=== PATIENT | female | born 1950 | race Caucasian/White ===

== ENCOUNTER 2016-05-06 01:49 | Emergency (ER) | payer MEDICARE, MEDICAID ==
[~2016-05-06] VITALS: Ht 160 cm; Wt 87.0 kg
[~2016-05-06 01:49] MED LIST: ASPI-1093 PO; HYDR25TA PO; LISI-618 PO
[2016-05-06 02:55] LABS: APPEARANCE,URINE SLIGHTLY CLOUDY (CLEAR); GLUCOSE, URINE (UA) NEGATIVE (NEGATIVE); PROTEIN,URINE SEE CONFIRM (NEGATIVE)
[2016-05-06 02:56] LABS: ADD UA MICROSCOPIC YES; KETONES,URINE NEGATIVE (NEGATIVE); LEUKOCYTE ESTERASE ,URINE MODERATE (NEGATIVE); OCCULT BLOOD,URINE LARGE (NEGATIVE)
[2016-05-06 03:02] LABS: RBC,URINE 26-50 /HPF (0-2); SULFOSALICYLIC ACID,URINE 1+ (Negative)
[2016-05-06 03:03] LABS: SQUAMOUS EPITHELIAL CELL,UR Rare /LPF (None Seen)
[2016-05-06 03:39] VITALS: BP 132/76
== END 2016-05-06 03:43 | disposition home or self-care (01) ==
LOC: EMS 01:50
DX: N39.0 Urinary tract infection, site not specified (principal); I10 Essential (primary) hypertension; E78.00 Pure hypercholesterolemia, unspecified; Z88.6 Allergy status to analgesic agent; Z79.82 Long term (current) use of aspirin
CPT/HCPCS: 87086; 99284

== ENCOUNTER 2016-06-18 14:37 | Emergency (ER) | payer MEDICARE, MEDICAID ==
[~2016-06-18] VITALS: Ht 160 cm; Wt 85.0 kg
[2016-06-18 15:00] VITALS: BP 147/94
[2016-06-18 15:01] LABS: APPEARANCE,URINE CLOUDY (CLEAR); GLUCOSE, URINE (UA) NEGATIVE (NEGATIVE); KETONES,URINE NEGATIVE (NEGATIVE); LEUKOCYTE ESTERASE ,URINE LARGE (NEGATIVE); OCCULT BLOOD,URINE LARGE (NEGATIVE); PH,URINE 6.5 (5.0-8.0); PROTEIN,URINE POS 1+ (NEGATIVE)
[2016-06-18 15:05] LABS: RENAL EPITHELIAL CELLS,URINE Few /LPF (None Seen); SQUAMOUS EPITHELIAL CELL,UR Few /LPF (None Seen); WBC,URINE 26-50 /HPF (0-5)
[2016-06-18] MEDS ORDERED: ACETAMINOPHEN 325 MG TABLET PO ONE (15:30)
[2016-06-18] MEDS ORDERED: LIDOCAINE HCL/PF 1% 2 ML VIAL IM ONE (15:45)
[2016-06-18] MEDS ORDERED: CefTRIAXone SODIUM 1 GM/VIAL IM ONE (15:45)
== END 2016-06-18 16:29 | disposition home or self-care (01) ==
LOC: EMS 14:38
DX: N39.0 Urinary tract infection, site not specified (principal); I10 Essential (primary) hypertension; E78.00 Pure hypercholesterolemia, unspecified; Z88.6 Allergy status to analgesic agent
CPT/HCPCS: 81001; 87077; 87086; 96372; 99284; J0696; J3490

== ENCOUNTER 2017-09-25 16:34 | Emergency (ER) | payer MEDICAID, MEDICARE ==
[~2017-09-25] VITALS: Ht 162.6 cm; Wt 86.4 kg
[~2017-09-25 16:34] MED LIST changes: -ASPI-1093 PO; +ASPI-1182 PO
[2017-09-25] MEDS ORDERED: DEXAMETHASONE SOD PHOS 4 MG/ML 5 ML VIAL IM ONE (17:00)
[2017-09-25 18:51] VITALS: BP 107/61
== END 2017-09-25 19:01 | disposition home or self-care (01) ==
LOC: EMS 16:35
DX: L50.9 Urticaria, unspecified (principal); E78.00 Pure hypercholesterolemia, unspecified; I10 Essential (primary) hypertension; Z88.8 Allergy status to other drugs, medicaments and biological substances; Z79.82 Long term (current) use of aspirin; Z79.899 Other long term (current) drug therapy; Z90.49 Acquired absence of other specified parts of digestive tract; Z98.890 Other specified postprocedural states
CPT/HCPCS: 96372; 99283; J1100

== ENCOUNTER 2018-10-05 16:43 | Emergency (ER) | payer MEDICARE ==
[~2018-10-05] VITALS: Ht 157.5 cm; Wt 90.0 kg
[2018-10-05 16:45] VITALS: BP 120/79
== END 2018-10-05 18:14 | disposition home or self-care (01) ==
LOC: EMS 16:45
DX: I10 Essential (primary) hypertension (principal); E78.00 Pure hypercholesterolemia, unspecified; Z76.0 Encounter for issue of repeat prescription; Z90.49 Acquired absence of other specified parts of digestive tract; Z88.6 Allergy status to analgesic agent; Z79.82 Long term (current) use of aspirin; Z79.899 Other long term (current) drug therapy

== ENCOUNTER 2018-12-03 06:26 | Emergency (ER) | payer MEDICARE ==
[~2018-12-03] VITALS: Ht 157.5 cm; Wt 84.1 kg
[~2018-12-03 06:26] MED LIST changes: -HYDR25TA PO
[2018-12-03] MEDS ORDERED: ASPI81TA39 PO (06:46)
[2018-12-03] MEDS ORDERED: HYDR12.530 PO (06:46)
[2018-12-03 07:04] LABS: APPEARANCE,URINE CLOUDY (CLEAR); BILIRUBIN,URINE NEGATIVE (NEGATIVE); GLUCOSE, URINE (UA) NEGATIVE (NEGATIVE); KETONES,URINE NEGATIVE (NEGATIVE); LEUKOCYTE ESTERASE ,URINE LARGE (NEGATIVE); NITRATE,URINE NEGATIVE (NEGATIVE); OCCULT BLOOD,URINE LARGE (NEGATIVE); PROTEIN,URINE TRACE (NEGATIVE); UROBILINOGEN,URINE 0.2 mg/dL (<=1.0)
[2018-12-03 07:14] LABS: BACTERIA,URINE None Seen /HPF (None Seen); SQUAMOUS EPITHELIAL CELL,UR Few /LPF (None Seen); WBC,URINE 51-100 /HPF (0-5)
[2018-12-03] MEDS ORDERED: CefTRIAXone SODIUM 1 GM/VIAL IM ONE (08:00)
[2018-12-03] MEDS ORDERED: LIDOCAINE/PF 1% 2 ML VIAL IM ONE (08:00)
[2018-12-03 08:24] VITALS: BP 129/74
== END 2018-12-03 08:26 | disposition home or self-care (01) ==
LOC: EMS 06:27
DX: N39.0 Urinary tract infection, site not specified (principal); I10 Essential (primary) hypertension; E78.00 Pure hypercholesterolemia, unspecified; Z79.82 Long term (current) use of aspirin; Z88.6 Allergy status to analgesic agent
CPT/HCPCS: 81001; 87086; 96372; 99283; J0696; J3490